=== PATIENT | female | born 1965 | race Two or more races ===

== ENCOUNTER 2019-04-15 08:11 | Outpatient (CLI) | payer OTHER | END 2019-04-15 08:15 | disposition home or self-care (01) | LOC: SONOGRAMA 08:11 | DX: E04.1 Nontoxic single thyroid nodule (principal) ==

== ENCOUNTER 2022-09-13 11:41 | Emergency (ER) | payer OTHER ==
[~2022-09-13] VITALS: Ht 154.9 cm; Wt 84.8 kg
[2022-09-13] MEDS ORDERED: PROTONIX40 MG PO (12:19)
[2022-09-13] MEDS ORDERED: ARICEPT10 MG (12:19)
[2022-09-13] MEDS ORDERED: FARXIGA10 MG PO (12:19)
[2022-09-13] MEDS ORDERED: LYRICA150 MG PO (12:20)
[2022-09-13] MEDS ORDERED: CRESTOR10 MG PO (12:20)
[2022-09-13] MEDS ORDERED: COZAAR25 MG PO (12:20)
[2022-09-13] MEDS ORDERED: ZOLOFT100 MG PO (12:20)
[2022-09-13] MEDS ORDERED: WELLBUTRIN SR150 MG PO (12:21)
[2022-09-13] MEDS ORDERED: ABILIFY10 MG (12:22)
[2022-09-13] MEDS ORDERED: CLONAZEPAM2 M1 PO (12:22)
[2022-09-13] MEDS ORDERED: METFORMIN HCL500 M3 (12:22)
[2022-09-13] MEDS ORDERED: ESTAZOLAM2 MG (12:23)
[2022-09-13] MEDS ORDERED: DEPAKOTE ER500 MG PO (12:23)
[2022-09-13] MEDS ORDERED: TRAZODONE HCL100 MG PO (12:24)
== END 2022-09-13 14:54 | disposition home or self-care (01) ==
LOC: ER 11:41
DX: M54.9 Dorsalgia, unspecified (principal); M79.7 Fibromyalgia; I10 Essential (primary) hypertension; E11.9 Type 2 diabetes mellitus without complications; Z79.84 Long term (current) use of oral hypoglycemic drugs; F32.89 Other specified depressive episodes

== ENCOUNTER 2022-09-14 12:25 | Emergency (ER) | payer OTHER ==
[~2022-09-14] VITALS: Ht 154.9 cm; Wt 84.8 kg
[~2022-09-14 12:25] MED LIST: ABILIFY10 MG; ARICEPT10 MG; CLONAZEPAM2 M1 PO; COZAAR25 MG PO; CRESTOR10 MG PO; DEPAKOTE ER500 MG PO; ESTAZOLAM2 MG; FARXIGA10 MG PO; LYRICA150 MG PO; METFORMIN HCL500 M3; PROTONIX40 MG PO; TRAZODONE HCL100 MG PO; WELLBUTRIN SR150 MG PO; ZOLOFT100 MG PO
== END 2022-09-14 18:26 ==
LOC: ER 12:25
DX: M25.552 Pain in left hip (principal); M54.9 Dorsalgia, unspecified; M54.42 Lumbago with sciatica, left side; E11.9 Type 2 diabetes mellitus without complications; I10 Essential (primary) hypertension; F32.A Depression, unspecified; M79.7 Fibromyalgia; E78.5 Hyperlipidemia, unspecified; M54.16 Radiculopathy, lumbar region

== ENCOUNTER 2024-12-01 11:14 | Outpatient (CLI) | payer OTHER | END 2024-12-01 11:19 | disposition home or self-care (01) | LOC: RAD 11:14 | PROVIDERS: ATTEND Orthopaedic Surgery | DX: M25.551 Pain in right hip (principal); M25.552 Pain in left hip ==

== ENCOUNTER 2024-12-07 10:50 | Outpatient (CLI) | payer OTHER | END 2024-12-07 12:03 | disposition home or self-care (01) | LOC: SONOGRAMA 10:50 | PROVIDERS: ATTEND Orthopaedic Surgery | DX: M25.511 Pain in right shoulder (principal); M75.121 Complete rotator cuff tear or rupture of right shoulder, not specified as traumatic ==

== ENCOUNTER 2024-12-28 11:22 | Outpatient (CLI) | payer OTHER | END 2024-12-28 11:23 | disposition home or self-care (01) | LOC: NUCLEAR 11:22 | PROVIDERS: ATTEND Orthopaedic Surgery | DX: M81.0 Age-related osteoporosis without current pathological fracture (principal) ==

== ENCOUNTER 2025-01-03 09:12 | Outpatient (CLI) | payer OTHER ==
[2025-01-03] MEDS ORDERED: MELOXICAM15 MG PO (10:59)
[2025-01-03] MEDS ORDERED: METHOCARBAMOL500 MG PO (10:59)
[2025-01-03 11:07] LABS: ALT/SGPT 25.0 U/L (12-78); AST/SGOT 17.0 U/L (15-37); BILIRUBIN TOTAL 0.57 mg/dL (0.3-1.2); BUN CREA RATIO 26.0 (7.0-25.0); CREATININE SERUM 0.84 mg/dL (0.55-1.02); GFR 69.88; GLOBULINA 3.5 G/DL (2.4-3.5); GLUCOSE FASTING 103.0 mg/dL (65-100); OSMOLALITY SERUM 287.0 MOSM/KG (275-295)
[2025-01-05 09:11] LABS: CALCIUM IONIZED 5.1 mg/dL (4.5-5.6)
== END 2025-01-03 09:15 | disposition home or self-care (01) ==
LOC: LAB 09:12
PROVIDERS: ATTEND Orthopaedic Surgery
DX: E55.9 Vitamin D deficiency, unspecified (principal); M85.9 Disorder of bone density and structure, unspecified; E56.1 Deficiency of vitamin K; E21.3 Hyperparathyroidism, unspecified; E88.89 Other specified metabolic disorders; M81.8 Other osteoporosis without current pathological fracture

== ENCOUNTER 2025-01-13 11:32 | Outpatient (CLI) | payer OTHER ==
[~2025-01-13 11:32] MED LIST changes: +MELOXICAM15 MG PO; +METHOCARBAMOL500 MG PO
== END 2025-01-13 11:52 | disposition home or self-care (01) ==
LOC: MRI 11:32
PROVIDERS: ATTEND Physical Medicine & Rehabilitation
DX: M54.50 Low back pain, unspecified (principal)
CPT/HCPCS: 72148

== ENCOUNTER 2025-03-03 10:51 | Outpatient (CLI) | payer OTHER ==
[2025-03-03] MEDS ORDERED: DICLOFENAC EPO1 EACH TD (15:51)
[2025-03-03] MEDS ORDERED: ZANAFLEX2 M1 PO (15:52)
== END 2025-03-03 11:01 | disposition home or self-care (01) ==
LOC: MRI 10:51
PROVIDERS: ATTEND Orthopaedic Surgery
DX: M75.111 Incomplete rotator cuff tear or rupture of right shoulder, not specified as traumatic (principal)
CPT/HCPCS: 73222; Q9965